=== PATIENT | male | born 1995 | race Caucasian/White ===

== ENCOUNTER 2018-12-27 11:00 | Emergency (ER) | payer MEDICAID, SELFPAY ==
[2018-12-27 11:04] VITALS: BP 110/77; PULSE 115; RESP 16; TEMP 36.7; O2SAT 99; BMI 29.3
[2018-12-27 11:30] VITALS: PULSE 81; RESP 16; O2SAT 100
[2018-12-27] MEDS: 0.9% Normal Saline 1,000 ML 999 ML IV ×2 (11:30)
[2018-12-27 11:46] LABS: Absolute Lymphocyte Count 0.49 X10^3/ul (0.83-4.51); Absolute Neutrophil Count 8.9 X10^3/uL (2.0-7.7); Basophil# 0.02 X10^3/uL; Basophil% 0.2 % (0-1); Eosinophil# 0.43 X10^3/uL; Eosinophils% 4.1 % (0-5); Hematocrit 39.9 % (40-54); Hemoglobin 12.6 g/dl (13.0-16.5); Lymphocyte # 0.49 X10^3/ul (4.0); Lymphocyte % 4.7 % (19-41); Mean Corp Hgb Conc 31.6 g/gl (32-36); Mean Corpuscular Hgb 22.6 pg (27.0-32.0); Mean Corpuscular Volume 71.5 fL (80-94); Mean Platelet Vol. 11.2 fl (6.2-12.0); Monocyte# 0.56 X10^3/uL; Monocyte% 5.4 % (0-10); Neutrophil # 8.85 X10^3/uL (2.7-7.7); Neutrophil % 85.4 % (47-70); Platelet Count 241 K/mm3 (150-450); RBC Distribution Width SD 39.2 fl (35.1-43.9); Red Blood Count 5.58 M/mm3 (4.6-6.2); White Blood Count 10.4 K/mm3 (4.4-11.0)
[2018-12-27 11:48] LABS: Differential Indicated SCAN CRITERIA MET; POSITIVE COUNT NO; POSITIVE DIFFERENTIAL YES; POSITIVE MORPHOLOGY YES
--- NOTE | 2018-12-27 12:00 | ED.VISSUMM ---
- ER Visit Summary Date of Service: 12/27/18 Chief Complaint: Diarrhea History of Present Illness: The patient is a 23 M who presents emergency department with diarrhea since 4:00 this morning. Patient has a loop ileostomy. He states that he normally has about 800 cc of output a day. He reports that when he woke up this morning there is 650 cc of liquid diarrhea in his bag. He states he has already changed it again and while in the shower he left it open and it continued to drain. States that he almost passed out with the shower. He feels lightheaded with standing. He is concerned about dehydration. Mom that he stays with states that they called his doctors at the [facility] advised him to the come to the emergency department here or in [place]. He denies any fevers. He notes that yesterday he was at an [employer] auction. He states he had some hot soup and some lettuce. No fevers. No vomiting Physical Examination: Afebrile vital signs are stable. Gen: Well-nourished well-developed Head: Normocephalic atraumatic Eyes: Perrl EOMI ENT: TMs clear no rhinorrhea moist mucous membranes Neck: Supple no lymphadenopathy no JVD nontender CVS: Regular rate rhythm no murmurs normal S1-S2 Respiratory: No distress clear to auscultation bilaterally chest nontender Abdomen: Soft nontender nondistended normal bowel sounds no masses stoma is pink. Back: Nontender Extremity: Nontender no edema Skin: Normal color no rash Neuro: alert orientated ?3 CN II-XII intact normal strength sensation reflexes gait cerebellar Psych: Normal affect normal mood Test Results: CBC and BMP are normal hemoglobin 12.6. Stool panel sent. Emergency Department Course and Treatment: Patient received 2 L of IV fluids. Patient will be discharged home. Instructions for oral hydration and Imodium. Return if worsening or concerns. The patient's enteric pathogen panel returned and was positive for norovirus. Patient's was updated by nursing and advised that he should expect significant diarrhea and dehydration is the biggest concern in addition to electrolyte abnormalities. Impression: 1. Norovirus Infection 2. Dehydration This note was generated with [employer] software. It may contain incorrect words, spelling, and punctuation that were not noted in review of the chart prior to signing ED Disposition - Plan for ED Patient: Disposition: Home or Assisted Living Instructions: ED Diarrhea Viral Referrals: Seng Villalba MD [Primary Care Provider] - Additional Instructions: Follow-up with your doctors or return if worsening.
--- NOTE | 2018-12-27 12:03 | ED.DCSUM_ITS ---
- ER Visit Summary Date of Service: 12/27/18 Chief Complaint: Diarrhea History of Present Illness: The patient is a 23 M who presents emergency department with diarrhea since 4:00 this morning. Patient has a loop ileostomy. He states that he normally has about 800 cc of output a day. He reports that when he woke up this morning there is 650 cc of liquid diarrhea in his bag. He states he has already changed it again and while in the shower he left it open and it continued to drain. States that he almost passed out with the shower. He feels lightheaded with standing. He is concerned about dehydration. Mom that he stays with states that they called his doctors at the [facility] advised him to the come to the emergency department here or in [place]. He denies any fevers. He notes that yesterday he was at an [place] auction. He states he had some hot soup and some lettuce. No fevers. No vomiting Physical Examination: Afebrile vital signs are stable. Gen: Well-nourished well-developed Head: Normocephalic atraumatic Eyes: Perrl EOMI ENT: TMs clear no rhinorrhea moist mucous membranes Neck: Supple no lymphadenopathy no JVD nontender CVS: Regular rate rhythm no murmurs normal S1-S2 Respiratory: No distress clear to auscultation bilaterally chest nontender Abdomen: Soft nontender nondistended normal bowel sounds no masses stoma is pink. Back: Nontender Extremity: Nontender no edema Skin: Normal color no rash Neuro: alert orientated ?3 CN II-XII intact normal strength sensation reflexes gait cerebellar Psych: Normal affect normal mood Test Results: CBC and BMP are normal hemoglobin 12.6. Stool panel sent. Emergency Department Course and Treatment: Patient received 2 L of IV fluids. Patient will be discharged home. Instructions for oral hydration and Imodium. Return if worsening or concerns. The patient's enteric pathogen panel returned and was positive for norovirus. Patient's was updated by nursing and advised that he should expect significant diarrhea and dehydration is the biggest concern in addition to electrolyte abnormalities. Impression: 1. Norovirus Infection 2. Dehydration This note was generated with [employer] software. It may contain incorrect words, spelling, and punctuation that were not noted in review of the chart prior to signing ED Disposition - Plan for ED Patient: Disposition: Home or Assisted Living Instructions: ED Diarrhea Viral Referrals: Seng Villalba MD [Primary Care Provider] - Additional Instructions: Follow-up with your doctors or return if worsening.
[2018-12-27 12:06] LABS: ALB/GLOB Ratio 1.2 RATIO (0.9-2.4); AST(SGOT) 22 U/L (15-37); Alanine Aminotransfer ALT/SGPT 52 U/L (16-61); Albumin, Serum 4.5 g/dL (3.2-5.0); Alkaline Phosphatase 156 U/L (45-117); Anion Gap 4 (5-15); BUN 10 mg/dL (7-18); BUN/Creat Ratio 10.2 RATIO (10-20); Calcium,Total 9.1 mg/dL (8.5-10.1); Chloride 104 mmol/L (98-107); Creatinine, Serum 0.98 mg/dL (0.70-1.30); EST Glomerular Filtration Rate 101 mL/min (>60); Est Glom Filt Rate - Afr Amer 122 mL/min (>60); Estimated Creatinine Clearance 141.31 ml/min; Globulin 3.6 g/dL (2.2-4.2); Glucose 92 mg/dL (74-106); Potassium 4.1 mmol/L (3.5-5.1); Protein, Total 8.1 g/dL (6.4-8.2); Sodium Level 135 mmol/L (136-145)
[2018-12-27 13:01] VITALS: PULSE 83; RESP 14; O2SAT 100
== END 2018-12-27 13:02 | disposition home or self-care (01) ==
PROVIDERS: Emergency Provider Emergency Medicine; Family Provider Family Medicine; PCP Family Medicine
DX: A08.11 Acute gastroenteropathy due to Norwalk agent (principal); E86.0 Dehydration; Z93.2 Ileostomy status
CPT/HCPCS: 80053; 85025; 87506; 96360; 96361; 99283; J7030

== ENCOUNTER 2022-12-08 20:24 | Emergency (ER) | payer MEDICAID, SELFPAY ==
[2022-12-08 20:24] VITALS: BP 145/89; PULSE 108; RESP 16; TEMP 37.9; O2SAT 99; BMI 30.3
--- NOTE | 2022-12-08 21:19 | ED.RN ---
PT REPORTS SORE THROAT AND TROUBLE SWALLOWING. PT REPORTS MASS TO LEFT NECK UNDER EAR. PT REPORTS EAR INFECTION. FEVER X2 DAYS. 101.2 HIGHEST FEVER AT HOME PER PT MOTHER.
--- NOTE | 2022-12-08 21:24 | EDS_ITS ---
HPI History of Present Illness Chief Complaint: Cold Sx Informant: patient and parent Narrative Narrative: Progressive sore throat past 4 days feels swollen pain with swallowing fever yesterday 101. Today increasing swelling left side lower part of the ear. No c ough no urinary symptoms. He is on every 2-month infusions with history of Crohn's disease. Denies sick contacts. He has had COVID previously. PFSH PFSH Medical History Crohn disease Home Medications amoxicillin 875 mg-potassium clavulanate 125 mg tablet 875 mg PO Q12H #20 TABLETS 12/08/22 [Rx Last Taken Unknown] Allergy/AdvReac Type Severity Reaction Status Date / Time azathioprine [From Imuran] AdvReac Other Verified 12/08/22 21:15 Surgical History History of partial surgical removal of colon Social History Smoking Status: Never smoker ROS ROS ED Constitutional Constitutional ED: Reports fever(s); Denies chills or sweats Eyes Eyes: Denies change in vision ENT ENT ED: Reports sore throat; Denies dysphagia Cardiovascular Cardiovascular: Denies chest pain, leg edema, palpitations or racing heartbeat Respiratory/Chest Respiratory/Chest: Denies cough, dyspnea or dyspnea on exertion Gastrointestinal Gastrointestinal: Denies abdominal pain, diarrhea, nausea or vomiting Genitourinary Genitourinary ED: Denies dysuria, hematuria or urinary frequency Musculoskeletal Musculoskeletal: Denies back pain, extremity pain or neck pain Integumentary Denies rash or wounds Neurologic Neurologic: Denies headache(s), paresthesias or weakness Hematologic/Lymphatic Hematologic/Lymphatic: Reports lymphadenopathy EXAM Physical Exam Const Vital Signs: 12/08/22 20:24 12/08/22 21:17 12/08/22 22:10 Temperature 100.2 F H 102.5 F H Temperature Source Temporal Oral Pulse Rate 108 H 99 Respiratory Rate 16 19 H Respiratory Effort Normal Non-Labored Respiratory Pattern Normal Blood Pressure 145/89 H 120/61 Blood Pressure Mean 107 80 Pulse Ox 99 98 Oxygen Delivery Method Room Air Room Air 12/08/22 22:10 12/08/22 23:13 Temperature 102.5 F H 100.7 F H Temperature Source Oral Oral Pulse Rate 99 100 Respiratory Rate 20 H 16 Respiratory Effort Respiratory Pattern Blood Pressure 120/61 137/84 H Blood Pressure Mean 80 101 Pulse Ox 99 97 Oxygen Delivery Method Room Air Room Air Positive well nourished and well developed General Appearance ED: well developed and NAD HEENT Reports TM's clear and moist mucous membranes HEENT Narrative: 1-2+ symmetric tonsils bilaterally with exudates. Uvula midline. There is no significant erythema. Airway patent. normocephalic and atraumatic Tympanic Membrane ED: Yes TM's clear Eyes PERRL, EOMs intact bilaterally and conjunctivae normal General Eye ED: Yes normal appearance of both eyes Neck supple Neck Narrative: Left anterior cervical superior lymphadenopathy tender palpation. No submental lymphadenopathy. General: Negative for tenderness Chest Wall Chest: Negative for tenderness Resp normal respiratory effort and normal air movement Effort and Inspection: symmetric chest movement; Negative for respiratory distress Cardio regular rhythm and no murmurs Rate: tachycardic Peripheral Pulses: pulses 2+ throughout GI normal to inspection, nondistended, normoactive bowel sounds and non-tender Palpation: Negative for guarding or rebound tenderness present Back/Spine no CVA tenderness and no thoracic nor lumbar tenderness Extremity normal to inspection General Extremety ED: Negative for edema or tenderness General Extremity: Negative for edema Neuro oriented x3 and no sensory deficits noted Sensorium / Orientation: awake and alert Skin no rashes or lesions noted and no wounds MDM MDM MDM Narrative Medical decision making narrative: Interventions / MDM: Differential diagnosis: Strep pharyngitis, viral pharyngitis. Cervical lymphadenitis Diagnosis considered but do not suspect: Peritonsillar abscess however no asymmetric tonsils and uvula midline. No clinical signs of retropharyngeal abscess. My EKG interpretation: N/A Imaging independently reviewed and interpreted by myself: N/A External documents reviewed: N/A Test considered but not ordered:N/A ED course: Febrile on arrival nontoxic. Tylenol given avoid NSAIDs due to Crohn's history. He is treated with dexamethasone. Clinically no signs of peritonsillar abscess. He has exudates on his tonsils. COVID and flu negative. Rapid strep negative culture pending. He has cervical lymphadenitis on the left side. Covered with Augmentin is given ENT follow-up. Return precaution discussed. All questions were answered. Re-evaluation: stable and improving symptoms Disposition discussed with patient/family/significant other: Patient and mother Case discussed with consulting clinician: N/A Discharge Plan Triage Chief Complaint: Cold Sx ED Provider: Riley Rand Dx/Rx/DC Orders Clinical Impression: Acute pharyngitis, Acute cervical lymphadenitis, Fever Prescriptions: New amoxicillin-pot clavulanate [amoxicillin-pot clavulanate] 875-125 mg tablet 875 mg PO Q12H Qty: 20 0RF Primary Care Provider: Seng Villalba Referrals: Seng Villalba MD [Primary Care Provider] - Zeferino Pete MD [Med Staff - Active Staff] - 1-2 Weeks Activity Restrictions/Additional Instructions: COVID, flu, strep negative culture pending. Take antibiotic as prescribed. Use Tylenol as needed. Follow-up with ENT. Return if worsening symptoms. Disposition Disposition: Home, Self Care
[2022-12-08 22:10] VITALS: BP 120/61; PULSE 99; RESP 19; RESP 20; TEMP 39.2; O2SAT 98; O2SAT 99
[2022-12-08] MEDS: Acetaminophen 500 MG Tablet 1000 MG PO (22:11)
[2022-12-08] MEDS: dexAMETHasone 4 MG Tablet 12 MG PO (22:13)
[2022-12-08 23:13] VITALS: BP 137/84; PULSE 100; RESP 16; TEMP 38.2; O2SAT 97
[2022-12-08 23:14] VITALS: BP 137/84; PULSE 104; RESP 18; O2SAT 98
[2022-12-08] MEDS: Amox/Clavulanate 875 MG Tablet PO (23:21)
== END 2022-12-08 23:24 | disposition home or self-care (01) ==
PROVIDERS: Emergency Provider Emergency Medicine; PCP Family Medicine; Visit Provider Emergency Medicine
DX: J02.9 Acute pharyngitis, unspecified (principal); L04.0 Acute lymphadenitis of face, head and neck; Z86.16 Personal history of COVID-19
CPT/HCPCS: 87428; 87880; 99283